=== PATIENT | female | born 1965 | race Caucasian/White ===

== ENCOUNTER 2016-12-17 13:33 | Emergency (ER) | payer OTHER ==
--- NOTE | 2016-12-17 13:59 | ED CLINICAL REPORT ---
Clinical Report - Physicians/Mid Levels [facility] [address] [place] [address] 12/17/2016 13:36 [id number] Time Seen: 14:08 Dec 17 2016. Arrived- By private vehicle. Historian- patient. 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 It is described as being in the area of the right side of the mid-thoracic spine. The quality is noted to be "pain". No bladder dysfunction, bowel dysfunction or sensory loss. Additional history - Patient reports right-sided back pain and a lump over the last 1 month, worsening acutely over the last 1 week. Patient persists history of chronic back pain. Patient reports worsening of movement. Denies any acute fall or trauma. At time Patient of pain to the right leg. Patient denies urgency or frequency. Denies any shortness of breath or abdominal pain. REVIEW OF SYSTEMS No fever, cough, difficulty breathing, abdominal pain or nausea. No vomiting, diarrhea, urinary frequency or vaginal discharge. All systems otherwise negative, except as recorded above. SOCIAL HISTORY Smoker- current status unknown. Alcohol use. Not an IV drug user. ADDITIONAL NOTES The nursing notes have been reviewed. PHYSICAL EXAM Vital Signs: 12/17/2016 13:43 BP: 154/93. HR: 79. RR: 18. O2 saturation: 96%. Temp: 98.1 F. Pain level now: 7/10. Appearance: Alert. Eyes: Pupils equal, round and reactive to light. ENT: Ears normal. Neck: Normal inspection. Neck nontender. No vertebral tenderness. No soft tissue tenderness. CVS: Normal heart rate and rhythm. Heart sounds normal. No extra heart sounds. Respiratory: No respiratory distress. Breath sounds normal. No decreased air movement or chest wall injury. Abdomen: Normal inspection. Soft. Back: Soft tissue tenderness. Muscle spasm present. No limitation in ROM. Skin: Skin warm. Normal skin color. Neuro: Straight leg raising: negative on the right and negative on the left. PROGRESS AND PROCEDURES Course of Care: Reproduced pain to mid spine on the paraspinous muscles, no midline tenderness. Full range of motion of the arms, pain with external rotation of the spine. Good distal sensation. Ambulatory. No red flags. Ongoing for 1 month. There are no risks for spinal epidural abscess or hematoma as patient is without any risk factors such as IVDA or evidence of active infection, no midline tenderness to percussion. Hence I do not feel emergent imaging with an MRI is indicated. However I did discuss with the patient that if these symptoms develop, or if the pain does not resolve an MRI may need to be done outpatient, or in the ED if symptoms worsen acutely or new onset of the above mentioned symptoms develop. Patient is stable. Symptoms better. Patient/family counseled. Disposition: Discharged. CLINICAL IMPRESSION Muscle strain of the mid back. INSTRUCTIONS Apply ice. Limit lifting. No strenuous activity. Rest. (alternate ice/ heat). Prescription Medications: Flexeril 10 mg: take 1 orally every 8 hours for 3 days as needed for muscle spasm. Dispense ten (10). No refills. Substitution is permissible. Motrin 800 mg tablets: take 1 tablet orally every 8 hours for 5 days, as needed for pain. Dispense ten (10). No refill. Substitution is permissible. Follow-up: Follow up with your doctor Wednesday. Understanding of the discharge instructions verbalized by patient. (Electronically signed by Dorinda Sauceda P.A.-C 12/17/2016 14:13)
--- NOTE | 2016-12-17 13:59 | ED CLINICAL REPORT ---
Clinical Report - Physicians/Mid Levels [facility] [address] [place] [address] 12/17/2016 13:36 [id number] Time Seen: 14:08 Dec 17 2016. Arrived- By private vehicle. Historian- patient. 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 It is described as being in the area of the right side of the mid-thoracic spine. The quality is noted to be "pain". No bladder dysfunction, bowel dysfunction or sensory loss. Additional history - Patient reports right-sided back pain and a lump over the last 1 month, worsening acutely over the last 1 week. Patient persists history of chronic back pain. Patient reports worsening of movement. Denies any acute fall or trauma. At time Patient of pain to the right leg. Patient denies urgency or frequency. Denies any shortness of breath or abdominal pain. REVIEW OF SYSTEMS No fever, cough, difficulty breathing, abdominal pain or nausea. No vomiting, diarrhea, urinary frequency or vaginal discharge. All systems otherwise negative, except as recorded above. SOCIAL HISTORY Smoker- current status unknown. Alcohol use. Not an IV drug user. ADDITIONAL NOTES The nursing notes have been reviewed. PHYSICAL EXAM Vital Signs: 12/17/2016 13:43 BP: 154/93. HR: 79. RR: 18. O2 saturation: 96%. Temp: 98.1 F. Pain level now: 7/10. Appearance: Alert. Eyes: Pupils equal, round and reactive to light. ENT: Ears normal. Neck: Normal inspection. Neck nontender. No vertebral tenderness. No soft tissue tenderness. CVS: Normal heart rate and rhythm. Heart sounds normal. No extra heart sounds. Respiratory: No respiratory distress. Breath sounds normal. No decreased air movement or chest wall injury. Abdomen: Normal inspection. Soft. Back: Soft tissue tenderness. Muscle spasm present. No limitation in ROM. Skin: Skin warm. Normal skin color. Neuro: Straight leg raising: negative on the right and negative on the left. PROGRESS AND PROCEDURES Course of Care: Reproduced pain to mid spine on the paraspinous muscles, no midline tenderness. Full range of motion of the arms, pain with external rotation of the spine. Good distal sensation. Ambulatory. No red flags. Ongoing for 1 month. There are no risks for spinal epidural abscess or hematoma as patient is without any risk factors such as IVDA or evidence of active infection, no midline tenderness to percussion. Hence I do not feel emergent imaging with an MRI is indicated. However I did discuss with the patient that if these symptoms develop, or if the pain does not resolve an MRI may need to be done outpatient, or in the ED if symptoms worsen acutely or new onset of the above mentioned symptoms develop. Patient is stable. Symptoms better. Patient/family counseled. Disposition: Discharged. CLINICAL IMPRESSION Muscle strain of the mid back. INSTRUCTIONS Apply ice. Limit lifting. No strenuous activity. Rest. (alternate ice/ heat). Prescription Medications: Flexeril 10 mg: take 1 orally every 8 hours for 3 days as needed for muscle spasm. Dispense ten (10). No refills. Substitution is permissible. Motrin 800 mg tablets: take 1 tablet orally every 8 hours for 5 days, as needed for pain. Dispense ten (10). No refill. Substitution is permissible. Follow-up: Follow up with your doctor Wednesday. Understanding of the discharge instructions verbalized by patient. (Electronically signed by Dorinda Suaceda P.A.-C 12/17/2016 14:13)
--- NOTE | 2016-12-17 13:59 | ED NURSING NOTES ---
Clinical Report - Nurses [facility] [place] [address] 12/17/2016 13:36 [id number] Triage time 13:44 Dec 17 2016. Acuity: LEVEL 4. Chief Complaint: (Lump to R lateral T spine). Alert. No acute distress. SEPSIS SCREEN: Sepsis Screen. Negative (no infection suspected/documented). --13:52 Pj Lomas R.N. 13:43 12/17/16. BP: 154/93. HR: 79. RR: 18. O2 saturation: 96% on room air. Temp: 98.1 F. Pain level now: 02/22. --13:52 Pj Lomas R.N. Weight: 84.3 kg stated. Height/Length: 64 inches Per Patient. BMI: 31.9. --13:43 Pj Lomas R.N. Medications Lovastatin Oral. --13:46 Pj Lomas R.N. Allergies Percocet. --13:47 Pj Lomas R.N. History Arrived by private vehicle. Historian: patient. Accompanied by family. 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 States it has never been given a diagnosis despite myriad of imaging completed. States that is has grown in size and has become painful over the last month.). ( Pt reports pain radiates down her leg.). Treatment RECEPTIONIST AIRLINE LOUNGE: (Oxycodone). PAST MEDICAL HX: Tetanus status: up-to-date. Immunizations: up-to-date. Denies current . SOCIAL HX: Current every day heavy tobacco smoker- 1 pack per day. Occasional alcohol use. No drug use. No infectious disease exposure. ABUSE ASSESSMENT: Abuse assessment: The patient was asked "Do you feel safe in your home?". No report of abuse. SELF HARM ASSESSMENT: A self harm assessment was performed. The patient answered "no" to the question "Do you have thoughts of harming or killing yourself?". FALL RISK ASSESSMENT: Fall risk assessment completed. No fall risk identified. NUTRITIONAL RISK ASSESSMENT: The nutritional risk assessment revealed no deficiencies. FUNCTIONAL ASSESSMENT: Functional assessment: no impairments noted. LEARNING NEEDS ASSESSMENT: The learning needs assessment revealed no barriers. SKIN INTEGRITY ASSESSMENT: Skin integrity risk assessment completed. No skin integrity risk identified. --13:52 Pj Lomas R.N. PROBLEMS: Myalgias. Changed Mental Status. Abdominal Pain. LNMP - Last Normal Menstrual Period. Back Pain. Hypertension. --13:48 Pj Lomas R.N. Cerical laminectomy. --13:49 Pj Lomas R.N. ADDITIONAL SURGERIES: Benign tumor left breast. Breast Biopsy. Bunionectomy. Carpal Tunnel Surgery. Hysterectomy. Laminectomy. Left ankle surgery. Neck Surgery. Shoulder Surgery. Tubal Ligation. --13:50 Pj Lomas R.N. Interventions ID band on patient. To treatment room. --13:52 Pj Lomas R.N. PHYSICAL ASSESSMENT Ambulatory to room. GENERAL / NEURO / PSYCH: Alert. Oriented X 4. Appears anxious. HEENT: Pupils equal, round and reactive to light. RESPIRATORY: Respirations not labored. CVS: Normal heart rate and rhythm. SKIN: Skin intact. Skin is warm and dry. --13:52 Pj Lomas R.N. EXTREMITIES: Limited ROM present (Pt reporting pain to her R lateral thoracic region, posterior. Painful w/ movement. Denies pain upon palpation.). --13:59 Pj Lomas R.N. NURSING PROGRESS NOTES The plan of care for this patient has been created. Extremity elevated. Reassurance given. Two patient identifiers checked. Call light placed in reach. Bed placed in lowest position. Patient ready for evaluation- PA notified. ( PA at bedside assessing Pt, family at bedside.). --13:52 Pj Lomas R.N. DISPOSITION / DISCHARGE Condition at departure: stable. No learning barriers present. Discharge instructions provided and reviewed with the patient and family. Reviewed warnings (Pt instructed not to drive or consume ETOH while taking Rx Flexeril). Reviewed medication(s) side effects, precautions, dosing and course information. Prescription(s) given to the patient (Flexeril and Motrin). Reviewed referral to a primary care physician for followup (Pt encouraged to call Wednesday.). Activity restrictions (light lifting, minimal use of injured extremity and rest) reviewed. Patient verbalized understanding. Written instructions provided in Beninese. The patient was discharged by the physician assistant press operator offset. She was discharged home and accompanied by family. She left the Emergency Department ambulatory and via private vehicle. Family member driving. ( Pt dc'd in stable condition, ambulatory, VSS.). --14:11 Pj Lomas R.N. Departure time: 14:Dec 17 2016. --14:11 Pj Lomas R.N. Locked/Released at 12/17/2016 14:11 by Pj Lomas R.N.
--- NOTE | 2016-12-17 13:59 | ED NURSING NOTES ---
Clinical Report - Nurses [facility] [place] [address] 12/17/2016 13:36 [id number] Triage time 13:44 Dec 17 2016. Acuity: LEVEL 4. Chief Complaint: (Lump to R lateral T spine). Alert. No acute distress. SEPSIS SCREEN: Sepsis Screen. Negative (no infection suspected/documented). --13:52 Pj Lomas R.N. 13:43 12/17/16. BP: 154/93. HR: 79. RR: 18. O2 saturation: 96% on room air. Temp: 98.1 F. Pain level now: 02/22. --13:52 Pj Lomas R.N. Weight: 84.3 kg stated. Height/Length: 64 inches Per Patient. BMI: 31.9. --13:43 Pj Lomas R.N. Medications Lovastatin Oral. --13:46 Pj Lomas R.N. Allergies Percocet. --13:47 Pj Lomas R.N. History Arrived by private vehicle. Historian: patient. Accompanied by family. 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 States it has never been given a diagnosis despite myriad of imaging completed. States that is has grown in size and has become painful over the last month.). ( Pt reports pain radiates down her leg.). 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 PAST MEDICAL HX: Tetanus status: up-to-date. Immunizations: up-to-date. Denies current . SOCIAL HX: Current every day heavy tobacco smoker- 1 pack per day. Occasional alcohol use. No drug use. No infectious disease exposure. ABUSE ASSESSMENT: Abuse assessment: The patient was asked "Do you feel safe in your home?". No report of abuse. SELF HARM ASSESSMENT: A self harm assessment was performed. The patient answered "no" to the question "Do you have thoughts of harming or killing yourself?". FALL RISK ASSESSMENT: Fall risk assessment completed. No fall risk identified. NUTRITIONAL RISK ASSESSMENT: The nutritional risk assessment revealed no deficiencies. FUNCTIONAL ASSESSMENT: Functional assessment: no impairments noted. LEARNING NEEDS ASSESSMENT: The learning needs assessment revealed no barriers. SKIN INTEGRITY ASSESSMENT: Skin integrity risk assessment completed. No skin integrity risk identified. --13:52 Pj Lomas R.N. PROBLEMS: Myalgias. Changed Mental Status. Abdominal Pain. LNMP - Last Normal Menstrual Period. Back Pain. Hypertension. --13:48 Pj Lomas R.N. Cerical laminectomy. --13:49 Pj Lomas R.N. ADDITIONAL SURGERIES: Benign tumor left breast. Breast Biopsy. Bunionectomy. Carpal Tunnel Surgery. Hysterectomy. Laminectomy. Left ankle surgery. Neck Surgery. Shoulder Surgery. Tubal Ligation. --13:50 Pj Lomas R.N. Interventions ID band on patient. To treatment room. --13:52 Pj Lomas R.N. PHYSICAL ASSESSMENT Ambulatory to room. GENERAL / NEURO / PSYCH: Alert. Oriented X 4. Appears anxious. HEENT: Pupils equal, round and reactive to light. RESPIRATORY: Respirations not labored. CVS: Normal heart rate and rhythm. SKIN: Skin intact. Skin is warm and dry. --13:52 Pj Lomas R.N. EXTREMITIES: Limited ROM present (Pt reporting pain to her R lateral thoracic region, posterior. Painful w/ movement. Denies pain upon palpation.). --13:59 Pj Lomas R.N. NURSING PROGRESS NOTES The plan of care for this patient has been created. Extremity elevated. Reassurance given. Two patient identifiers checked. Call light placed in reach. Bed placed in lowest position. Patient ready for evaluation- PA notified. ( PA at bedside assessing Pt, family at bedside.). --13:52 Pj Lomas R.N. DISPOSITION / DISCHARGE Condition at departure: stable. No learning barriers present. Discharge instructions provided and reviewed with the patient and family. Reviewed warnings (Pt instructed not to drive or consume ETOH while taking Rx Flexeril). Reviewed medication(s) side effects, precautions, dosing and course information. Prescription(s) given to the patient (Flexeril and Motrin). Reviewed referral to a primary care physician for followup (Pt encouraged to call Wednesday.). Activity restrictions (light lifting, minimal use of injured extremity and rest) reviewed. Patient verbalized understanding. Written instructions provided in [place]. The patient was discharged by the physician culinary assistant. She was discharged home and accompanied by family. She left the Emergency Department ambulatory and via private vehicle. Family member driving. ( Pt dc'd in stable condition, ambulatory, VSS.). --14:11 Pj Lomas R.N. Departure time: 14:Dec 17 2016. --14:11 Pj Lomas R.N. Locked/Released at 12/17/2016 14:11 by Pj Lomas R.N.
--- NOTE | 2016-12-17 14:14 | ED MAR SUMMARY ---
..... Medication Administration Record [facility] [address], [place] [id number] Patient: TORY WERNER Visit ID: [id number] 51y, F Weight: 84.3 kg Height/Length: 64 in BMI: 31.9 ALLERGIES: Percocet
--- NOTE | 2016-12-17 14:14 | ED MED RECONCILIATION SUMMARY ---
Patient: TORY WERNER Medication Reconciliation Report [facility] VisitID: [id number] [address] [place] [address] 51y, F Registration Date/Time: 12/17/2016 Weight: 84.3 kg Height/Length: 64 in. BMI: 31.9 ALLERGIES: Percocet The patient's Home Medications are listed below: THE FOLLOWING MEDICATIONS NEED TO BE RECONCILED: Lovastatin Oral The source(s) of the original Home Medication information: Not obtained. The following Medications were given to the patient in the Emergency Department: None. The following Medications were prescribed to the patient: Flexeril 10 mg: take 1 orally every 8 hours for 3 days as needed for muscle spasm. Dispense ten (10). No refills. Substitution is permissible. -- Dorinda Sauceda, P.A.-C Motrin 800 mg tablets: take 1 tablet orally every 8 hours for 5 days, as needed for pain. Dispense ten (10). No refill. Substitution is permissible. -- Dorinda Sauceda, P.A.-C
--- NOTE | 2016-12-17 14:14 | ED DISCHARGE INSTRUCTIONS ---
Patient: TORY WERNER General Instructions [facility] VisitID: [id number] [place] [address] 51y, F Registration Date/Time: 12/17/2016 Muscle strain of the mid back. INSTRUCTIONS Apply ice. Limit lifting. No strenuous activity. Rest. (alternate ice/ heat). Prescription Medications: Flexeril 10 mg: take 1 orally every 8 hours for 3 days as needed for muscle spasm. Dispense ten (10). No refills. Substitution is permissible. Motrin 800 mg tablets: take 1 tablet orally every 8 hours for 5 days, as needed for pain. Dispense ten (10). No refill. Substitution is permissible. Follow-up: Follow up with your doctor Wednesday. Understanding of the discharge instructions verbalized by patient. ADDITIONAL INFORMATION Muscle Strain,Extremity A MUSCLE STRAIN is a stretching and tearing of muscle fibers. This causes pain, especially with motion of that muscle. There may also be some swelling and bruising. Home Care: 1) Keep the injured area raised to reduce pain and swelling. This is especially important during the first 48 hours. 2) Make an ice pack (ice cubes in a plastic bag, wrapped in a towel) and apply for 20 minutes every 1-2 hours the first day. You should continue with ice packs 3-4 times a day for the second and third days. Unless otherwise instructed, on the fourth day you may begin hot soaks or hot packs (small towel soaked in hot water) 3-4 times a day while you gently exercise the involved area. 3) You may use acetaminophen (Tylenol) or ibuprofen (Motrin, Advil) to control pain, unless another medicine was prescribed. [ NOTE : If you have chronic liver or kidney disease or ever had a stomach ulcer or GI bleeding, talk with your doctor before using these medicines.] 4) For LEG STRAINS: If CRUTCHES have been recommended, do not bear full weight on the injured leg until you can do so without pain. You may return to sports when you are able to hop and run on the injured leg without pain. Follow Up with your doctor or this facility if you are not improving within the next five days. Get Prompt Medical Attention if any of the following occur: -- Fingers or toes become swollen, cold, blue, numb or tingly -- Pain or swelling increases Back Pain [Acute Or Chronic] Back pain is usually caused by an injury to the muscles or ligaments of the spine. Sometimes the disks that separate each bone in the spine may bulge and cause pain by pressing on a nearby nerve. Back pain may also appear after a sudden twisting/bending force (such as in a car accident), after a simple awkward movement, or lifting something heavy with poor body positioning. In either case, muscle spasm is often present and adds to the pain. Acute back pain usually gets better in one to two weeks. Back pain related to disk disease, arthritis in the spinal joints or spinal stenosis (narrowing of the spinal canal) can become chronic and last for months or years. Unless you had a physical injury (for example, a car accident or fall) X-rays are usually not ordered for the initial evaluation of back pain. If pain continues and does not respond to medical treatment, x-rays and other tests may be performed at a later time. Home Care: You may need to stay in bed the first few days. But, as soon as possible, begin sitting or walking to avoid problems with prolonged bed rest (muscle weakness, worsening back stiffness and pain, blood clots in the legs). When in bed, try to find a position of comfort. A firm mattress is best. Try lying flat on your back with pillows under your knees. You can also try lying on your side with your knees bent up towards your chest and a pillow between your knees. Avoid prolonged sitting. This puts more stress on the lower back than standing or walking. During the first two days after injury, apply an ICE PACK to the painful area for 20 minutes every 2-4 hours. This will reduce swelling and pain. HEAT (hot shower, hot bath or heating pad) works well for muscle spasm. You can start with ice, then switch to heat after two days. Some patients feel best alternating ice and heat treatments. Use the one method that feels the best to you. You may use acetaminophen (Tylenol) or ibuprofen (Motrin, Advil) to control pain, unless another pain medicine was prescribed. [NOTE: If you have chronic liver or kidney disease or ever had a stomach ulcer or GI bleeding, talk with your doctor before using these medicines.] Be aware of safe lifting methods and do not lift anything over 15 pounds until all the pain is gone. Follow Up with your doctor or this facility if your symptoms do not start to improve after one week. Physical therapy may be needed. [NOTE: If X-rays were taken, they will be reviewed by a radiologist. You will be notified of any new findings that may affect your care.] Get Prompt Medical Attention if any of the following occur: Pain becomes worse or spreads to your legs Weakness or numbness in one or both legs Loss of bowel or bladder control Numbness in the groin or genital area Cyclobenzaprine Hydrochloride Oral tablet What is this medicine? CYCLOBENZAPRINE (tatiana black) is a muscle relaxer. It is used to treat muscle pain, spasms, and stiffness. How should I use this medicine? Take this medicine by mouth with a glass of water. Follow the directions on the prescription label. If this medicine upsets your stomach, take it with food or milk. Take your medicine at regular intervals. Do not take it more often than directed. Talk to your technical services specialist regarding the use of this medicine in children. Special care may be needed. What side effects may I notice from receiving this medicine? Side effects that you should report to your doctor or health career development counselor as soon as possible: allergic reactions like skin rash, itching or hives, swelling of the face, lips, or tongue chest pain fast heartbeat hallucinations seizures vomiting Side effects that usually do not require medical attention (report to your doctor or health career development counselor if they continue or are bothersome): headache What may interact with this medicine? Do not take this medicine with any of the following medications: cisapride droperidol flecainide grepafloxacin halofantrine levomethadyl MAOIs like Carbex, Eldepryl, Marplan, Nardil, and Parnate nilotinib pimozide probucol sertindole This medicine may also interact with the following medications: abarelix alcohol contrast dyes dolasetron guanethidine medicines for cancer medicines for depression, anxiety, or psychotic disturbances medicines to treat an irregular heartbeat medicines used for sleep or numbness during surgery or procedure methadone octreotide ondansetron palonosetron phenothiazines like chlorpromazine, mesoridazine, prochlorperazine, thioridazine some medicines for infection like alfuzosin, chloroquine, clarithromycin, levofloxacin, mefloquine, pentamidine, troleandomycin tramadol vardenafil What if I miss a dose? If you miss a dose, take it as soon as you can. If it is almost time for your next dose, take only that dose. Do not take double or extra doses. Where should I keep my medicine? Keep out of the reach of children. Store at room temperature between 15 and 30 degrees C (59 and 86 degrees F). Keep container tightly closed. Throw away any unused medicine after the expiration date. What should I tell my health care provider before I take this medicine? They need to know if you have any of these conditions: heart disease, irregular heartbeat, or previous heart attack liver disease thyroid problem an unusual or allergic reaction to cyclobenzaprine, tricyclic antidepressants, lactose, other medicines, foods, dyes, or preservatives or trying to get breast-feeding What should I watch for while using this medicine? Check with your doctor or health career development counselor if your condition does not improve within 1 to 3 weeks. You may get drowsy or dizzy when you first start taking the medicine or change doses. Do not drive, use machinery, or do anything that may be dangerous until you know how the medicine affects you. Stand or sit up slowly. Your mouth may get dry. Drinking water, chewing sugarless gum, or sucking on hard candy may help. Ibuprofen Oral tablet What is this medicine? IBUPROFEN (eye BYOO proe fen) is a non-steroidal anti-inflammatory drug (NSAID). It is used for dental pain, fever, headaches or migraines, osteoarthritis, rheumatoid arthritis, or painful monthly periods. It can also relieve minor aches and pains caused by a cold, flu, or sore throat. How should I use this medicine? Take this medicine by mouth with a glass of water. Follow the directions on the prescription label. Take this medicine with food if your stomach gets upset. Try to not lie down for at least 10 minutes after you take the medicine. Take your medicine at regular intervals. Do not take your medicine more often than directed. A special MedGuide will be given to you by the pharmacist with each prescription and refill. Be sure to read this information carefully each time. Talk to your technical services specialist regarding the use of this medicine in children. Special care may be needed. What side effects may I notice from receiving this medicine? Side effects that you should report to your doctor or health career development counselor as soon as possible: allergic reactions like skin rash, itching or hives, swelling of the face, lips, or tongue black or bloody stools, blood in the urine or in vomit breathing problems changes in vision chest pain general ill feeling or flu-like symptoms nausea or vomiting redness, blistering, peeling or loosening of the skin, including inside the mouth slurred speech or weakness on one side of the body stomach pain unexplained weight gain or swelling unusually weak or tired yellowing of eyes or skin Side effects that usually do not require medical attention (report to your doctor or health career development counselor if they continue or are bothersome): constipation or diarrhea dizziness gas or heartburn stomach upset What may interact with this medicine? Do not take this medicine with any of the following medications: cidofovir ketorolac methotrexate pemetrexed This medicine may also interact with the following medications: alcohol aspirin diuretics lithium other drugs for inflammation like prednisone warfarin What if I miss a dose? If you miss a dose, take it as soon as you can. If it is almost time for your next dose, take only that dose. Do not take double or extra doses. Where should I keep my medicine? Keep out of the reach of children. Store at room temperature between 15 and 30 degrees C (59 and 86 degrees F). Keep container tightly closed. Throw away any unused medicine after the expiration date. What should I tell my health care provider before I take this medicine? They need to know if you have any of these conditions: asthma cigarette smoker drink more than 3 alcohol containing drinks a day heart disease or circulation problems such as heart failure or leg edema (fluid retention) high blood pressure kidney disease liver disease stomach bleeding or ulcers an unusual or allergic reaction to ibuprofen, aspirin, other NSAIDS, other medicines, foods, dyes, or preservatives or trying to get breast-feeding What should I watch for while using this medicine? Tell your doctor or healthcare professional if your symptoms do not start to get better or if they get worse. This medicine does not prevent heart attack or stroke. In fact, this medicine may increase the chance of a heart attack or stroke. The chance may increase with longer use of this medicine and in people who have heart disease. If you take aspirin to prevent heart attack or stroke, talk with your doctor or health career development counselor. Do not take other medicines that contain aspirin, ibuprofen, or naproxen with this medicine. Side effects such as stomach upset, nausea, or ulcers may be more likely to occur. Many medicines available without a prescription should not be taken with this medicine. This medicine can cause ulcers and bleeding in the stomach and intestines at any time during treatment. Ulcers and bleeding can happen without warning symptoms and can cause . To reduce your risk, do not smoke cigarettes or drink alcohol while you are taking this medicine. You may get drowsy or dizzy. Do not drive, use machinery, or do anything that needs mental alertness until you know how this medicine affects you. Do not stand or sit up quickly, especially if you are an older patient. This reduces the risk of dizzy or fainting spells. This medicine can cause you to bleed more easily. Try to avoid damage to your teeth and gums when you brush or floss your teeth. You have been given the following additional information: Muscle Strain, Extremity Back Pain (Acute Or Chronic) Cyclobenzaprine Hydrochloride Oral tablet Ibuprofen Oral tablet Limit lifting. No strenuous activity. Rest. (Electronically signed by Dorinda Sauceda P.A.-C 12/17/2016 14:13)
--- NOTE | 2016-12-17 14:14 | ED MED RECONCILIATION SUMMARY ---
Patient: TORY WERNER Medication Reconciliation Report [facility] VisitID: [id number] [address] [place] [address] 51y, F Registration Date/Time: 12/17/2016 Weight: 84.3 kg Height/Length: 64 in. BMI: 31.9 ALLERGIES: Percocet The patient's Home Medications are listed below: THE FOLLOWING MEDICATIONS NEED TO BE RECONCILED: Lovastatin Oral The source(s) of the original Home Medication information: Not obtained. The following Medications were given to the patient in the Emergency Department: None. The following Medications were prescribed to the patient: Flexeril 10 mg: take 1 orally every 8 hours for 3 days as needed for muscle spasm. Dispense ten (10). No refills. Substitution is permissible. -- Dorinda Sauceda, P.A.-C Motrin 800 mg tablets: take 1 tablet orally every 8 hours for 5 days, as needed for pain. Dispense ten (10). No refill. Substitution is permissible. -- Dorinda Sauceda, P.A.-C
--- NOTE | 2016-12-17 14:14 | ED MAR SUMMARY ---
..... Medication Administration Record [facility] [address] [place], [place] [id number] Patient: TORY WERNER Visit ID: [id number] 51y, F Weight: 84.3 kg Height/Length: 64 in BMI: 31.9 ALLERGIES: Percocet
== END 2016-12-17 14:05 | disposition home or self-care (01) ==
LOC: ED SRH 13:33
DX: S29.012A Strain of muscle and tendon of back wall of thorax, initial encounter (principal); X50.0XXA Overexertion from strenuous movement or load, initial encounter; Y93.9 Activity, unspecified; Y92.9 Unspecified place or not applicable